=== PATIENT | male | born 1995 | race Asian ===

== ENCOUNTER 2022-06-10 20:30 | Emergency (ER) | payer OTHER, SELFPAY ==
--- NOTE | ~2022-06-10 | XR_ITS ---
EXAM: XR foot RT min 3V DATE: 06/10/2022 21:14 HISTORY: pain in arch after kicking sofa, PAIN ALL OVER . COMPARISON: None available. FINDINGS: Normal mineralization. No fracture or dislocation. No lytic or blastic lesion. Joint space s are maintained. No erosion or periosteal change. Soft tissues within normal limits. IMPRESSION: No acute osseous finding in the right foot. Reviewed, dictated and finalized at location K.
[2022-06-10 20:39] VITALS: BP 135/85; PULSE 109; RESP 18; TEMP 36.5; O2SAT 100
--- NOTE | 2022-06-10 20:55 | ED.LOWEXIN ---
HPI - Extremity Injury (Lower) General Chief Complaint: Extremity Injury, Lower <ANGEL LUIS Ruiz Last Filed: 06/10/22 21:58> Stated Complaint: R foot injury <ANGEL LUIS Ruiz Last Filed: 06/10/22 21:58> Time Seen by Provider: 06/10/22 20:42 <ANGEL LUIS Ruiz Last Filed: 06/10/22 21:58> History of Present Illness HPI Narrative: Patient is a 27 year old male here for evaluation of right foot pain for the past day. Patient states the pain came on after he accidentally kicked the side of the couch today. He denies any numbness or tingling in his foot. He took a pain pill that he brought over from [place] without significant relief of his pain. He is unsure the name of the medication. Patient states he is not unable to bear weight since the accident. No further injury sustained in the accident. <ANGEL LUIS Ruiz Last Filed: 06/10/22 21:58> Related Data Home Medications: Home Medications Medication Instructions Recorded Confirmed No Home Medications 06/10/22 06/10/22 <ANGEL LUIS Ruiz Last Filed: 06/10/22 21:58> Allergies/Adverse Reactions: Allergies Allergy/AdvReac Type Severity Reaction Status Date / Time No Known Allergies Allergy Verified 06/10/22 20:42 <ANGEL LUIS Ruiz Last Filed: 06/10/22 21:58> Review of Systems Review of Systems: Gen: Denies fevers or chills Eyes: Denies eye pain or visual change ENT: Denies congestion Respiratory: Denies shortness of breath or cough CV: Denies chest pain or palpitations GI: Denies abdominal pain nausea, emesis or diarrhea : denies burning, urgency, frequency or hematuria Musculoskeletal: Reports foot pain. Neuro: Denies numbness, tingling, weakness or focal weakness Skin: Denies rash Except as documented, all other systems reviewed and negative <ANGEL LUIS Ruiz Last Filed: 06/10/22 21:58> Exam Narrative: APPEARANCE: Well appearing, no pain in distress, well-nourished. Head: Normocephalic and atraumatic. EYES: PERRLA/EOMI, conjunctivae clear NOSE: No nasal drainage EARS: External ear normal in appearance THROAT: Oropharynx is clear. Mucous membranes are moist. NECK: Supple. No adenopathy, no masses. RESPIRATORY: Airway patent, respirations nonlabored. Clear to auscultation bilaterally, no rales, rhonchi, wheezing. CARDIOVASCULAR: Regular rate and rhythm without murmurs, rubs, or gallops. ABDOMINAL: Normoactive bowel sounds. Soft, nontender, nondistended. No rebound tenderness or guarding. MUSCULOSKELETAL: tender to palpation along arch of right foot. FROM in toes and ankle. no deformity or swelling. NEURO: Normal speech. No focal neurologic deficits. SKIN: Skin is warm and dry. No rashes. PSYCHIATRIC: Normal affect/mood. <Lupe Etienne PA-C - Last Filed: 06/10/22 21:58> Course TAKE AWAY MAN/PA Physician Supervision For this encounter, I have reviewed the mid-level provider documentation, treatment plan and medical decision making. I have had [id number] time with the patient. physical exam the patient's ankle is unremarkable. There is no significant bruising or swelling. X-rays were negative for acute injury. Patient be treated with NSAIDs and discharged <Fadi Reese MD - Last Filed: 06/17/22 07:45> Vital Signs Vital signs: Vital Signs Temperature 97.7 F 06/10/22 20:39 Pulse Rate 109 H 06/10/22 20:39 Respiratory Rate 18 06/10/22 20:39 Blood Pressure 135/85 06/10/22 20:39 Pulse Oximetry 100 06/10/22 20:39 Oxygen Delivery Room Air 06/10/22 20:39 Temperature 97.7 F 06/10/22 20:39 Pulse Rate 109 H 06/10/22 20:39 Respiratory Rate 18 06/10/22 20:39 Blood Pressure 135/85 06/10/22 20:39 Pulse Oximetry 100 06/10/22 20:39 Oxygen Delivery Room Air 06/10/22 20:39 <Lupe Etienne PA-C - Last Filed: 06/10/22 21:58> Vital Signs Temperature 97.7 F 06/10/22 20:39
== END 2022-06-10 21:38 | disposition home or self-care (01) ==
PROVIDERS: Emergency Provider Emergency Medicine
DX: S93.401A Sprain of unspecified ligament of right ankle, initial encounter (principal); S96.911A Strain of unspecified muscle and tendon at ankle and foot level, right foot, initial encounter; W22.03XA Walked into furniture, initial encounter
CPT/HCPCS: 73630; 99283

== ENCOUNTER 2023-03-30 17:02 | Emergency (ER) | payer OTHER, SELFPAY ==
--- NOTE | ~2023-03-30 | CT_ITS ---
EXAMINATION: CT abdomen pelvis wo con DATE: 03/30/2023 17:56 INDICATION: Right flank pain TECHNIQUE: Computed tomography (CT) of the abdomen and pelvis was performed without intravenous contr ast. The dose-length product (DLP) was 767.95 mGy-cm. Automated exposure control and iterative recons truction technique were employed. COMPARISON: None FINDINGS: There is a 3 mm nodule of the right lower lobe, likely old granulomatous disease. The heart size is normal. The liver, spleen, pancreas, gallbladder, and adrenal glands are normal. There is a 3 mm stone of the proximal right ureter which causes mild right hydronephrosis. The left kidney is un remarkable. No pathologically enlarged abdominal or pelvic lymph nodes are identified. No free intrap eritoneal gas or evidence of bowel obstruction. IMPRESSION: 1. 3 mm stone of the proximal right ureter causing mild hydronephrosis. Reviewed, dictated and finalized at location F.
[2023-03-30 17:03] VITALS: BP 125/71; PULSE 80; RESP 16; TEMP 36.3; O2SAT 100
--- NOTE | 2023-03-30 17:08 | ED.MALEGU ---
HPI - Male Genitourinary General Chief complaint: Urogenital-Male Stated complaint: right lower back pain Time Seen by Provider: 03/30/23 17:07 History of Present Illness HPI Narrative: patient is a pleasant 28 yo male with a past medical history of a kidney stone about 2 years prior without any other medical history who presents to the ED today ambulatory with a steady gait for evaluation of right flank pain that is radiating into the side that started 2 hours ago with nausea/vomiting. Patient states that he had noticed some pain in his back Yesterday but daughter which is normal back pain. He did not take anything for the pain today. He denies any fever or chills. Denies any diarrhea, constipation, inability to urinate, blood in his urine, testicular pain/swelling, penile discharge, concerns of STDs or any other symptoms. Related Data Allergies Allergy/AdvReac Type Severity Reaction Status Date / Time No Known Allergies Allergy Verified 06/10/22 20:42 Review of Systems Review of Systems: CONSTITUTIONAL: Denies fever, chills, or sweats. EYES: Denies visual changes, redness, or discharge. ENT: Denies rhinorrhea, congestion, sore throat, or otalgia. CARDIOVASCULAR: Denies chest pain, palpitations, or edema. RESPIRATORY: Denies cough or dyspnea. GASTROINTESTINAL: +nausea/vomiting. Denies abdominal pain, or diarrhea. GENITOURINARY: +right flank pain. Denies dysuria or hematuria. SKIN: Denies rash or itching. MUSCULOSKELETAL: Denies back pain, joint pain, or myalgia. NEUROLOGIC: Denies headache, numbness, or weakness. PSYCHIATRIC: Denies anxiety or depression. All systems reviewed & are unremarkable except as noted in HPI and below PMFSH Past Medical History Medical History (Updated 03/30/23 @ 18:48 by Suzette Anders APRN) Kidney stones Exam Narrative: GENERAL: Well-appearing, well-nourished. patient lying on stretcher and does appear in mild distress due to pain. non-toxic however. HEAD: Normocephalic, atraumatic. EYES: PERRLA and EOMI. ENT: Nares clear, no rhinorrhea or epistaxis. Mucous membranes moist. NECK: Supple. CHEST: Clear to auscultation. No respiratory distress. HEART: Regular rate and rhythm. No murmur heard. Normal peripheral pulses. ABDOMEN: Soft, nontender, nondistended, normal active bowel sounds. : right flank pain, radiates to right side. EXTREMITIES: Normal range of motion. No edema. SKIN: Warm, dry, no rash. NEURO: No focal deficits. Alert and oriented x3. PSYCH: Normal mood and affect. Course Reevaluation(s) Reevaluation #1: patient resting at this time, the pain has improved from prior, although still present. we discussed his results, the plan of care for discharge, follow, up and to dose oral pain medication before leaving. He will not be driving. Date: 03/30/23 Time: 18:45 Vital Signs Vital signs: Vital Signs Temperature 97.3 F L 03/30/23 17:03 Pulse Rate 80 03/30/23 17:03 Respiratory Rate 16 03/30/23 17:03 Blood Pressure 125/71 03/30/23 17:03 Pulse Oximetry 100 03/30/23 17:03 Temperature 97.3 F L 03/30/23 17:03 Pulse Rate 80 03/30/23 17:03 Respiratory Rate 16 03/30/23 17:03 Blood Pressure 125/71 03/30/23 17:03 Pulse Oximetry 100 03/30/23 17:03 MDM - Male Genitourinary MDM Narrative Medical decision making narrative: 28 yo presenting to the emergency department for acute flank pain, symptoms are concerning for likely renal colic versus pyelonephritis.? Urinalysis is ordered and CBC, CMP. Toradol 30mg, Zofran 4mg and IV fluids are ordered. CT scan of the abdomen/pelvis is ordered. Labs are remarkable for: WBC is 14 thousand. CMP unremarkable. Urine shows >100 RBCs without infection noted CT scan of the abdomen/pelvis is reviewed by myself and interpreted by radiology: 3mm right stone proximal ureter causing mild hydronephrosis. no other significant findings. On reevaluation, the patient still having some pain but appears
[2023-03-30] MEDS: SODIUM CHLORIDE 0.9% IV 1,000 ML 999 ML IV CONT ×2 (17:21→18:39)
[2023-03-30] MEDS: ONDANSETRON INJ 4 MG/2 ML VIAL IV PUSH (17:24)
[2023-03-30] MEDS: KETOROLAC 30 MG/ML VIAL (*BKC) IV PUSH (17:24)
[2023-03-30 17:32] LABS: Basophils Percent Auto 0.2 % (0.2-1.2); Eosinophils Percent Auto 0.3 % (0-4.4); Hematocrit 43.7 % (42.0-52.0); Hemoglobin 14.4 g/dL (14.0-18.0); Immature Granulocyte Absolute 0.09 K/mm3 (0.00-0.031); Immature Granulocyte Percent A 0.6 % (0-0.5); Lymphocytes Absolute Auto 1.91 K/mm3 (0.9-3.2); Lymphocytes Percent Auto 13.5 % (18.3-44.2); Mean Corpuscular Hemoglobin 27.5 pg (26-34); Mean Corpuscular Volume 83.4 fl (80-100); Mean Platelet Volume 9.8 fl (7.4-10.4); Monocytes Absolute Auto 0.8 K/mm3 (0.1-0.6); Monocytes Percent Auto 5.5 % (2.6-8.5); Neutrophils Absolute Auto 11.3 K/mm3 (1.3-6.7); Neutrophils Percent Auto 79.9 % (45.5-73.1); Platelet Count Result 330 k/mm3 (150-375); Red Blood Count 5.24 M/mm3 (4.6-6.20); Red Cell Distribution Width 13.6 % (11.5-14.5); White Blood Count 14.1 K/mm3 (4.5-10.0)
[2023-03-30 17:39] LABS: Appearance Urine Turbid (Clear); Bacteria Urine None Seen /hpf; Bilirubin Urine Negative (Negative); Blood Urine 3+ (Negative); Color Urine Dark Yellow (Yellow); Glucose Urine UA Negative (Negative); Ketones Urine Trace mg/dL (Negative); Leukocyte Esterase Ur Trace LEU/UL (Negative); Nitrate Urine Negative (Negative); Non Pathogenic Casts 0-2; Protein Urine 1+ mg/dL (Negative); RBC Urine >100 /hpf (0-2); Specific Grav Ur 1.023 (1.001-1.035); Squamous Epithelial Cell Urine None seen /hpf (Few); WBC Urine 0-5 /hpf; pH Urine 6.5 (5.0-9.0)
[2023-03-30 17:40] LABS: Add Urine Microscopic? YES
[2023-03-30 17:46] LABS: Alanine Aminotransferase 28 U/L (6-50); Albumin Level 4.8 g/dL (3.5-5.1); Alkaline Phosphatase 110 U/L (38-126); Anion Gap 9 mmol/L (8-16); Aspartate Amino Transferase 27 U/L (17-59); Bilirubin,Total 0.5 mg/dL (0.2-1.3); Blood Urea Nitrogen 11 mg/dL (9-20); Carbon Dioxide 26 mmol/L (22-30); Chloride 103 mmol/L (98-107); Estimated CRCL calculation 101 ml/min; Estimated Glomerular Filt Rate > 60; Glucose 99 mg/dL (65-110); Potassium 3.6 mmol/L (3.4-5.0); Sodium 138 mmol/L (137-145)
[2023-03-30] MEDS: TAMSULOSIN HCL 0.4 MG CAPSULE PO (18:39)
[2023-03-30] MEDS: HYDROcodone/acetaminophen (*CRX) 5-325 MG TABLET 1 TAB PO (18:54)
== END 2023-03-30 19:19 | disposition home or self-care (01) ==
PROVIDERS: Emergency Provider Nurse Practitioner
DX: N13.2 Hydronephrosis with renal and ureteral calculous obstruction (principal); Z87.442 Personal history of urinary calculi
CPT/HCPCS: 36415; 74176; 80053; 81001; 85025; 96361; 96374; 96375; 99284; A9270; J1885; J2405; J7030